=== PATIENT | female | born 1950 | race African-American/Black ===

== ENCOUNTER 2021-10-15 20:56 | Inpatient (IN) | payer MEDICARE, BC ==
[~2021-10-15] VITALS: Ht 165.1 cm; Wt 71.7 kg
[2021-10-15] MEDS ORDERED: SODIUM CHLORIDE 0.9% 1,000 ML IV ONE (21:30)
[2021-10-15] MEDS ORDERED: MIDAZOLAM HCL 2 MG/2 ML VIAL IV ONE (21:30)
[2021-10-15 23:49] LABS: BASOPHILS % 0.5 % (0.0-2.0); EOSINOPHILS % 0.9 % (0.0-5.0); HEMATOCRIT. 36.3 % (36.0-48.0); HEMOGLOBIN. 12.3 g/dL (12.0-16.0); LYMPHOCYTES % 25.4 % (20.0-50.0); MEAN CORPUSCULAR HEMOGLOBIN 30.7 pg (28.0-32.0); MEAN CORPUSCULAR VOLUME 90.6 fL (81.0-99.0); MEAN PLATELET VOLUME 9.7 fl (7.4-10.4); MONOCYTES % 9.4 % (2.0-8.0); NEUTROPHILS % 63.8 % (40.0-76.0); PLATELET 133 x1000/uL (130-400); RED BLOOD CELL COUNT 4.01 mill/uL (4.2-5.4); RED CELL DISTRIBUTION WIDTH 13.9 % (11.6-14.6)
[2021-10-16] LABS: CHLORIDE 119 mEq/L (98-107)
[2021-10-16 00:02] LABS: INR 1.1; PROTHROMBIN TIME 11.3 sec (9.6-11.0)
[2021-10-16 00:14] LABS: CREATINE KINASE 134 IU/L (26-192); ETHANOL BLOOD < 10 mg/dL
[2021-10-16] MEDS ORDERED: HYDRALAZINE 20MG/ML VIAL IV PRN (02:00)
[2021-10-16] MEDS ORDERED: CLONIDINE 0.1MG TABLET PO PRN (02:00)
[2021-10-16] MEDS ORDERED: GUAIFENESIN 200MG/10ML SUGAR FREE UDC PO PRN (02:00)
[2021-10-16] MEDS ORDERED: ACETAMINOPHEN 325MG TABLET PO PRN ×2 (02:00)
[2021-10-16] MEDS ORDERED: MAGNESIUM/ALUMINUM HYDROXIDE/SIMETHICONE 30ML UDC PO PRN (02:00)
[2021-10-16] MEDS ORDERED: ONDANSETRON HCL 4MG/2ML INJ IV PRN (02:00)
[2021-10-16] MEDS ORDERED: MIDAZOLAM HCL 5 MG/5 ML VIAL IV NR (02:00)
[2021-10-16] MEDS ORDERED: IPRATROPIUM/ALBUTEROL 0.5-3(2.5)MG/3ML NEB NEB PRN (02:00)
[2021-10-16] MEDS ORDERED: HYDROCODONE/ACETAMINOPHEN 5/325MG TABLET PO PRN (02:00)
[2021-10-16] MEDS ORDERED: MIDAZOLAM HCL 2 MG/2 ML VIAL IV NR ×2 (02:15→08:00)
[2021-10-16] MEDS: SODIUM CHLORIDE 0.45% 1,000 ML IV SCH ×2 (02:42→22:00)
[2021-10-16 03:46] LABS: CLARITY URINE CLEAR (CLEAR); COLOR URINE YELLOW (YELLOW); KETONES URINE NEGATIVE (NEGATIVE); LEUKOCYTE ESTERASE URINE NEGATIVE (NEGATIVE); NITRITE URINE NEGATIVE (NEGATIVE); OCCULT BLOOD URINE NEGATIVE (NEGATIVE); PROTEIN URINE NEGATIVE (NEGATIVE); SPECIFIC GRAVITY URINE 1.012 (1.005-1.030)
[2021-10-16 04:26] LABS: *AMPHETAMINES SCREEN URINE NEGATIVE (NEGATIVE); *BARBITURATES SCREEN URINE NEGATIVE (NEGATIVE); *BENZODIAZEPINES SCREEN URINE PRESUMTIVE POSITIVE (NEGATIVE); *COCAINE SCREEN URINE NEGATIVE (NEGATIVE); CANNABINOID URINE SCREEN NEGATIVE (NEGATIVE); METHADONE URINE SCREEN NEGATIVE (NEGATIVE); OPIATES URINE SCREEN PRESUMTIVE POSITIVE (NEGATIVE); PHENCYCLIDINE URINE SCREEN NEGATIVE (NEGATIVE)
[2021-10-16 06:13] LABS: BASOPHILS % 0.8 % (0.0-2.0); EOSINOPHILS % 0.9 % (0.0-5.0); HEMATOCRIT. 37.5 % (36.0-48.0); HEMOGLOBIN. 12.7 g/dL (12.0-16.0); LYMPHOCYTES % 30.8 % (20.0-50.0); MEAN CORPUSCULAR HEMOGLOBIN 31.1 pg (28.0-32.0); MEAN CORPUSCULAR VOLUME 91.7 fL (81.0-99.0); MEAN PLATELET VOLUME 10.3 fl (7.4-10.4); MONOCYTES % 12.9 % (2.0-8.0); NEUTROPHILS % 54.6 % (40.0-76.0); PLATELET 132 x1000/uL (130-400); RED BLOOD CELL COUNT 4.09 mill/uL (4.2-5.4); RED CELL DISTRIBUTION WIDTH 14.4 % (11.6-14.6)
[2021-10-16 06:18] LABS: CHLORIDE 121 mEq/L (98-107)
[2021-10-16 06:34] LABS: PHOSPHORUS 2.5 mg/dL (2.5-4.9); T4 FREE 0.72 ng/dL (0.76-1.46)
[2021-10-16] MEDS: ENOXAPARIN 30MG/0.3ML SYR SUBCUT SCH ×2 (09:00→21:00)
[2021-10-16] MEDS ORDERED: SODIUM POLYSTYRENE SULFONATE 15 G/60 ML BOT PO SCH (10:00)
[2021-10-16] MEDS ORDERED: MIDAZOLAM HCL 2 MG/2 ML VIAL IV PRN (13:45)
[2021-10-16] MEDS ORDERED: NALOXONE HCL 0.4MG/ML VIAL IV PRN (13:45)
[2021-10-16] MEDS ORDERED: QUETIAPINE FUMARATE 25MG TABLET PO NR (13:45)
[2021-10-16] MEDS: OLANZAPINE 10 MG/VIAL IM NR ×2 (15:00→17:55)
[2021-10-16 15:40] VITALS: BP 155/95
[2021-10-16 16:00] VITALS: BP 124/64
[2021-10-16 20:00] VITALS: BP 196/69
[2021-10-16] MEDS ORDERED: QUETIAPINE FUMARATE 25MG TABLET PO SCH (21:00)
[2021-10-16] MEDS: OLANZAPINE 10 MG/VIAL IM SCH (21:00)
[2021-10-16] MEDS ORDERED: LOSARTAN POTASSIUM 50 MG TABLET PO SCH (21:00)
[2021-10-16] MEDS ORDERED: THIAMINE HCL 100 MG in SODIUM CHLORIDE 0.9% 49 ML IV NR (23:00)
[2021-10-17] VITALS: BP 155/77
[2021-10-17 04:00] VITALS: BP 148/77
[2021-10-17] MEDS ORDERED: AMLODIPINE 10MG TABLET PO SCH (09:00)
[2021-10-17] MEDS: OLANZAPINE 10 MG/VIAL IM SCH ×2 (09:00→10:07)
[2021-10-17] MEDS: ENOXAPARIN 30MG/0.3ML SYR SUBCUT SCH ×2 (09:00→10:07)
[2021-10-17] MEDS ORDERED: AMLO10TA80 PO (14:27)
[2021-10-17] MEDS ORDERED: LOSA100T32 PO (14:27)
== END 2021-10-17 14:23 | disposition left against medical advice (07) | DRG 917 ==
LOC: ER 20:56 → EDBEDREQDT 10-16 00:17 → EDBEDREQSVC 10-16 00:17 → EDBEDREQ 10-16 00:17 → EDBEDREQTM 10-16 00:17 → SUPCPDRO 10-16 00:20 → MICUSO 10-16 05:26 → 7WST 10-16 15:00
PROVIDERS: ADMIT Internal Medicine; ATTEND Internal Medicine
PROC: 4A10X4Z Monitoring of Central Nervous Electrical Activity, External Approach (ICD-10-PCS; principal; 2021-10-17)
DX: T40.2X1A Poisoning by other opioids, accidental (unintentional), initial encounter (principal); G92.9 Unspecified toxic encephalopathy; F32.3 Major depressive disorder, single episode, severe with psychotic features; I10 Essential (primary) hypertension; M10.9 Gout, unspecified; Z53.29 Procedure and treatment not carried out because of patient's decision for other reasons; Z78.1 Physical restraint status; Z90.49 Acquired absence of other specified parts of digestive tract; Y92.89 Other specified places as the place of occurrence of the external cause; Z91.19 Patient's noncompliance with other medical treatment and regimen; F19.11 Other psychoactive substance abuse, in remission; T42.4X1A Poisoning by benzodiazepines, accidental (unintentional), initial encounter
CPT/HCPCS: 36415; 71045; 80048; 80053; 80305; 80320; 81003; 82140; 82550; 83605; 83735; 83880; 84100; 84145; 84439; 84443; 84484; 85025; 93005; 95816; 99285; J0360; J1650; J2250; J3411; J3490; J7030; G0480

== ENCOUNTER 2022-11-24 06:12 | Emergency (ER) | payer MEDICARE, BC ==
[~2022-11-24] VITALS: Ht 154.9 cm; Wt 63.0 kg
[~2022-11-24 06:12] MED LIST: AMLO10TA80 PO; LOSA100T33 PO
[2022-11-24 06:19] VITALS: O2SAT 98
[2022-11-24] MEDS ORDERED: ACETAMINOPHEN 325MG TABLET PO STA (06:21)
[2022-11-24 07:10] LABS: BASOPHILS % 0.6 % (0.0-2.0); EOSINOPHILS % 1.6 % (0.0-5.0); HEMATOCRIT. 29.6 % (36.0-48.0); HEMOGLOBIN. 9.8 g/dL (12.0-16.0); LYMPHOCYTES % 15.6 % (20.0-50.0); MEAN CORPUSCULAR HEMOGLOBIN 28.4 pg (28.0-32.0); MEAN CORPUSCULAR HGB CONC 33.2 g/dL (31.0-37.0); MEAN CORPUSCULAR VOLUME 85.5 fL (81.0-99.0); MEAN PLATELET VOLUME 8.7 fl (7.4-10.4); MONOCYTES % 9.4 % (2.0-8.0); NEUTROPHILS % 72.8 % (40.0-76.0); PLATELET 251 x1000/uL (130-400); RED BLOOD CELL COUNT 3.46 mill/uL (4.2-5.4); RED CELL DISTRIBUTION WIDTH 14.7 % (11.6-14.6); WHITE BLOOD COUNT 7.8 x1000/uL (4.5-11.0)
[2022-11-24 07:17] LABS: INR 1.1; PROTHROMBIN TIME 11.7 sec (9.6-11.0)
[2022-11-24 07:41] LABS: CHLORIDE 113 mEq/L (98-107); INDEX HEMOLYSI 1 (1-3); INDEX ICTERIC 1 (1-4); INDEX LIPEMIC 1 (1-3); POTASSIUM 3.5 mEq/L (3.5-5.1); SODIUM 136 mEq/L (136-145)
[2022-11-24 07:50] LABS: ALANINE AMINOTRANSFERASE 30 IU/L (13-61); ALBUMIN 2.7 g/dL (3.4-5.0); ASPARTATE AMINOTRANSFERASE 61 IU/L (15-37); BILIRUBIN TOTAL 0.4 mg/dL (0.1-1.0); CALCIUM 8.2 mg/dL (8.5-10.1); CARBON DIOXIDE 25 mEq/L (21-32); CREATININE 0.6 mg/dL (0.6-1.3); GLUCOSE 84 mg/dL (70-105); PROTEIN TOTAL 7.3 g/dL (6.0-8.3); TROPONIN I HIGH SENSITIVITY 5 ng/L (<54); UREA NITROGEN BLOOD 7 mg/dL (7-21)
[2022-11-24 08:18] LABS: CLARITY URINE CLEAR (CLEAR); COLOR URINE YELLOW (YELLOW); GLUCOSE URINE NEGATIVE (NEGATIVE); KETONES URINE NEGATIVE (NEGATIVE); LEUKOCYTE ESTERASE URINE TRACE (NEGATIVE); NITRITE URINE NEGATIVE (NEGATIVE); OCCULT BLOOD URINE NEGATIVE (NEGATIVE); PROTEIN URINE NEGATIVE (NEGATIVE); SPECIFIC GRAVITY URINE 1.013 (1.005-1.030)
[2022-11-24 08:20] LABS: RBC URINE 0-2 /hpf (0-2); YEAST URINE NONE SEEN
[2022-11-24 08:34] LABS: BACTERIA URINE FEW; SQUAMOUS EPITHELIAL CELL URINE FEW /lpf (RARE/1+)
[2022-11-24] MEDS ORDERED: NITR-87 MT (09:13)
[2022-11-24 09:44] VITALS: BP 134/89; PULSE 86; RESP 20; TEMP 97.9
== END 2022-11-24 09:50 | disposition home or self-care (01) ==
LOC: ER 06:12
DX: M54.2 Cervicalgia (principal); I10 Essential (primary) hypertension; Z90.49 Acquired absence of other specified parts of digestive tract
CPT/HCPCS: 36415; 71045; 80053; 81003; 84484; 85025; 93005; 99285